=== PATIENT | male | born 2000 | race Caucasian/White ===

== ENCOUNTER 2024-02-16 01:09 | Emergency (ER) | payer MEDICAID, SELFPAY ==
--- NOTE | ~2024-02-16 | XR_ITS ---
EXAMINATION: XR CHEST CLINICAL INFORMATION: cramping spasms, CHEST PAIN PER PT COMPARISON: None available. TECHNIQUE: Frontal view of the chest was obtained. FINDINGS: No significant abnormality is noted involving the heart, lungs, mediastinum, bony thorax or soft tissues. XR/XR chest 1V IMPRESSION: Unremarkable examination. Electronically signed by: Pasha Falk MD 02/16/2024 05:27 AM [facility]
[2024-02-16 01:14] VITALS: BP 132/68; PULSE 99; RESP 16; TEMP 37.1; O2SAT 97; BMI 19.5
[2024-02-16 05:20] VITALS: BP 128/72; PULSE 81; RESP 16; TEMP 36.6; O2SAT 98
--- NOTE | 2024-02-16 05:24 | ECG_ITS ---
Test Reason : LEFT SIDE CHEST PAIN Blood Pressure : / mmHG Vent. Rate : 073 BPM Atrial Rate : 073 BPM P-R Int : 152 ms QRS Dur : 092 ms QT Int : 380 ms P-R-T Axes : 066 076 058 degrees QTc Int : 418 ms Normal sinus rhythm Normal ECG No previous ECGs available Referred By: Abilio Adkins Electronically Signed By:CYNTHIA TEIXEIRA
--- NOTE | 2024-02-16 06:11 | ED.CHESTPAIN ---
HPI - Chest Pain General Chief Complaint: Chest Pain Stated Complaint: L rib pain, sob Time Seen by Provider: 02/16/24 05:45 Source: patient Mode of arrival: ambulatory Limitations: no limitations History of Present Illness ED Provider: ZULAY HPI narrative: 23 yo male with no sig PMH here with c/o L chest wall pain after stretching the other day now he has pain when he moves and rotates the L chest wall. He has no fevers, no recent travel, no URI, he notes it hurts mostly to take a deep breath, rotate, cough. He has no other complaints this has never happened before. He tried motrin before bed and a muscle relaxer from someone doesn't know the name. He has no rash MD complaint: chest pain Onset (ago): day(s) (1) Timing of current episode: episodic Prior episodes: No Onset: other (movement, coughing, breathing) Pain location: left chest Pain radiation: none Severity: moderate Quality: sharp Relieving factors: rest Exacerbating factors: inspiration and movement Context: other Treatment prior to arrival: other Related Data Previous Rx's ?Medication ?Instructions ?Recorded cyclobenzaprine 10 mg tablet 10 mg PO TID PRN muscle spasm #20 02/16/24 tabs lidocaine 5 % topical patch 1 patch topical DAILY #30 ea 02/16/24 Allergies Allergy/AdvReac Type Severity Reaction Status Date / Time No Known Allergies Allergy Verified 02/16/24 01:17 Review of Systems Review of Systems: Constitutional : No Weight loss, No Fever, No Chills ENT/Mouth : No sore throat, No Rhinorrhea Eyes: No Eye Pain, No Swelling Cardiovascular : pos Chest Pain, no SOB, no Dyspnea on Exertion, No Orthopnea, No Edema, No Palpitations Respiratory : No Cough, No Sputum Gastrointestinal : no Nausea, No Vomiting, No Diarrhea, No abdominal Pain, No Hematochezia, No Melena Genitourinary : No Dysuria, No Urinary Frequency Musculoskeletal : No joint pain, No Myalgias, No Joint Swelling Skin : No Skin Lesions, No rash Neuro : No Weakness, No Numbness, No Dizziness, No Headache All other systems reviewed and are negative PMFSH Past Medical History Attestation statement: The following information was validated with the patient. Source: old records reviewed Medical History No pertinent past medical history Social History Social History (Updated 02/16/24 @ 06:18 by Alannah Florez DO) Patient Tobacco Use Status: Never used Tobacco Physical Exam Vital Signs: Vital Signs: Last Vital Signs Temp 97.8 F 02/16/24 05:20 Pulse 81 02/16/24 05:20 Resp 16 02/16/24 05:20 BP 128/72 02/16/24 05:20 Pulse Ox 98 02/16/24 05:20 O2 Del Method Room Air 02/16/24 05:20 BMI result Body Mass Index 19.5 Appearance: Alert. Oriented X3. No acute distress. Eyes: Pupils equal, round and reactive to light. ENT: Pharynx normal. Neck: Normal inspection. Neck supple. CVS: Normal heart rate and rhythm. Pulses normal. Respiratory: No respiratory distress. Breath sounds normal. Chest wall: pain with ROM of left arm and movements, no rash no crepitus Abdomen: Soft and non-tender. Skin: Skin warm and dry. Normal skin color. Normal skin turgor. Extremities: No lower extremity edema. Neuro: Oriented X 3. No motor deficit. No sensory deficit. Medical Decision Making Medical Decision Making [facility] Narrative: 23 yo male otherwise healthy here with c/o L chest wall pain worse with breathing and movements he stretched the other day and since then his L side of chest spasms - he has no fevers, cough, n/v, no recent travel or procedures. He has no risk factors for ACS, no IVDA either, he is PERC negative doubt VTE, has distal bounding pulses and pain gone at rest doubt dissection. Will obtain EKG and CXR for PTX start on MR and toradol. Differential Diagnosis Differential Diagnoses: The differential diagnosis associated with the presentation includes chest wall pain, spasm Admission/Observation Consideration of admission/observation: Escalation of care including admission/observation considered work up negative stable for DC Lab Data [facility] Lab Attestation statement: I reviewed the patient's lab results. Independent Interpretation I performed an independent interpretation of an: EKG and Plain X-Ray (normal ) Interpretation: Rate: 73 Rhythm: NSR [place]: normal Normal P waves. Normal MIRIAN. Normal QRS complex. ST T wave : normal no MALCOLM qTC: 418 prior studies: no acute ischemia The study has been interpreted contemporaneously by me. . Radiology Impression Discussion of test interpretation with radiology: I have reviewed the radiologist's reading. Prescription Management I considered prescription management with: Pain Medication and Other Discharge Plan Discharge Clinical Impression: Acute chest wall pain Patient Disposition: Home, Self-Care Instructions: Chest Wall Pain (ED) Additional Instructions: EKG and chest xray are normal no acute findings please rest and stay hydrated no lifting more than 10lbs for 2 weeks return for any worsening symptoms or concerns such as fainting, increased trouble breathing, fevers, productive cough or any other concerns. Prescriptions: New cyclobenzaprine 10 mg tablet 10 mg PO TID PRN (Reason: muscle spasm) Qty: 20 0RF lidocaine 5 % adhesive patch,medicated 1 patch topical DAILY Qty: 30 0RF Rx Instructions: leave on most painful area for up to 12 hrs Print Language: Turkmen
[2024-02-16] MEDS: Ketorolac Tromethamine 30 MG/ML VIAL IM (06:33)
[2024-02-16] MEDS: Lidocaine 4 % Patch ADH..PATCH 1 PATCH TRANSDERMA (06:34)
[2024-02-16 06:42] VITALS: BP 121/78; PULSE 85; RESP 16; TEMP 36.9; O2SAT 98
== END 2024-02-16 06:44 | disposition home or self-care (01) ==
PROVIDERS: Emergency Provider Emergency Medicine
DX: R07.89 Other chest pain (principal)
CPT/HCPCS: 71045; 93005; 96372; 99284; 99285; J1885

== ENCOUNTER → 2024-02-16 05:24 | Outpatient (BNV) | payer MEDICAID, SELFPAY | PROVIDERS: Emergency Provider Emergency Medicine; Visit Provider Internal Medicine | DX: R07.89 Other chest pain (principal); R06.02 Shortness of breath | CPT/HCPCS: 93010 ==

== ENCOUNTER 2024-04-16 11:34 | Emergency (ER) | payer MEDICAID, SELFPAY ==
[2024-04-16 11:44] VITALS: BP 129/77; PULSE 96; O2SAT 99
[2024-04-16 12:43] VITALS: BP 119/79; PULSE 106; RESP 16; TEMP 36.8; O2SAT 98; BMI 19.5
[2024-04-16 13:45] LABS: Hematocrit 47.7 % (42.0-52.0); Hemoglobin 17.1 g/dl (14.0-18.0); Mean Corpuscular HGB Conc 35.8 g/dl (31.0-36.0); Mean Corpuscular Hemoglobin 29.7 pg (27.0-33.0); Mean Corpuscular Volume 82.8 fL (80.0-98.0); Mean Platelet Volume 10.5 fL (9.4-12.4); Platelet Count 278 X10*3/uL (160-400); Red Blood Count 5.76 X10*6/uL (4.60-5.80); Red Cell Distribution Width 13.8 % (11.0-16.0); White Blood Count 19.1 X10*3/uL (4.8-10.8)
[2024-04-16 13:57] LABS: Alanine Aminotransferase 58 U/L (0-40); Albumin Level 5.7 g/dL (3.5-5.0); Alkaline Phosphatase 79 U/L (39-117); Anion Gap 21 (12-20); Aspartate Amino Transferase 35 U/L (5-37); Bilirubin Total 0.8 mg/dL (0.0-1.0); Blood Urea Nitrogen 28 mg/dL (9-16); Calcium 10.5 mg/dL (8.4-10.2); Carbon Dioxide 21 mmol/L (22-29); Chloride 100 mmol/L (96-108); Creatinine Clr Calc Pharmacy 69.2; Estimated Glomerular Filt Rate > 60; Glucose Random 125 mg/dL (60-115); Sodium 138 mmol/L (135-145); Total Protein 9.8 g/dL (6.5-8.0)
[2024-04-16 14:11] LABS: Band Neutrophils Percent 8 % (3-5); Basophils Abs Manual 0.4 X10*3/uL (0.0-0.2); Basophils Percent Manual 2 % (0-2); Lymphocytes Percent Manual 5 % (20-40); Monocytes Absolute Manual 1.1 X10*3/uL (0.1-1.2); Monocytes Percent Manual 6 % (2-11); Neutrophils Absolute Manual 16.6 X10*3/uL (2.0-8.3); Neutrophils Percent Manual 79 % (45-73)
[2024-04-16 14:12] LABS: Platelet Estimate NORMAL (NORMAL); Platelet Morphology Comment NORMAL; RBC Morphology NORMAL; Toxic Vacuolation PRESENT
[2024-04-16 15:44] LABS: Lactic Acid 1.6 mmol/L (0.5-2.0)
[2024-04-16 16:21] VITALS: BP 126/84; PULSE 107; RESP 16; TEMP 36.5; O2SAT 96
[2024-04-16 16:27] LABS: Influenza A PCR NEGATIVE (Negative); Influenza B PCR NEGATIVE (Negative); Resp Syncy Virus RNA Qual PCR NEGATIVE (Negative); SARS COV2 PCR INHOUSE NEGATIVE (Negative)
--- NOTE | 2024-04-16 16:30 | ED_ITS ---
HPI - Nausea/Vomiting/Diarrhea General Chief complaint: Nausea/Vomiting/Diarrhea Stated complaint: N/V Time Seen by Provider: 04/16/24 16:16 Source: patient, family and old records reviewed Mode of arrival: ambulatory Limitations: no limitations History of Present Illness ED Provider: ZULAY CALHOUN Narrative: 24 yo male with no sig PMH ate some pizza last night but his partner did too and she is fine. Around 130am he started to have significant n/v/d and abdominal cramps. NO recent travel, no fevers, no abx use. No known sick contacts. His chest and abdomen muscle feels sore. He has been able to keep radhames rodrick down this afternoon but he feels sick. MD elicited complaint: nausea, vomiting, diarrhea and abdominal pain Onset (ago): day(s) (130am today) Description of vomiting: food contents Description of diarrhea: watery Associated nausea: Yes Associated abdominal pain: Yes Location of pain: diffuse Radiation: diffuse Pain consistency: intermittent Severity: moderate Quality: cramping Exacerbating factors: eating and vomiting Relieving factors: none Context: possible food poisoning Associated symptoms: loss of appetite, malaise, nausea/vomiting and weakness Related Data Previous Rx's ?Medication ?Instructions ?Recorded cyclobenzaprine 10 mg tablet 10 mg PO TID PRN muscle spasm #20 02/16/24 tabs lidocaine 5 % topical patch 1 patch topical DAILY #30 ea 02/16/24 ondansetron 4 mg disintegrating 4 mg PO Q8H PRN nausea and 04/16/24 tablet vomiting #20 tabs Allergies Allergy/AdvReac Type Severity Reaction Status Date / Time No Known Allergies Allergy Verified 04/16/24 12:45 Review of Systems 2 Review of Systems: Constitutional : No Weight loss, No Fever, No Chills ENT/Mouth : No sore throat, No Rhinorrhea Eyes: No Swelling, No Redness Cardiovascular : No Chest Pain, No SOB, NoEdema Respiratory : No Cough, No Sputum, No Wheezing Gastrointestinal : Positive Nausea, Positive Vomiting, positive Diarrhea, positive abdominal Pain, No Hematochezia, No Melena Genitourinary : No Dysuria, No Urinary Frequency, No Hematuria, No Urgency Musculoskeletal : No joint pain, No Myalgias, No Joint Swelling Skin : No Skin Lesions, No rash Neuro : No Weakness, No Numbness, No Dizziness, No Headache All other systems reviewed and are negative. Gastrointestinal: Gastrointestinal: Reports nausea PMFSH Past Medical History Attestation statement: The following information was validated with the patient. Source: old records reviewed Medical History No pertinent past medical history Social History Social History Unable to assess alcohol history related to: Unknown Patient Tobacco Use Status: Never used Tobacco Smoked in Last 30 Days: No Use of substances other than those prescribed or required for medical reasons: Unknown Substance Use Type: Marijuana Advance Directives: No Advance Directives Information Provided: No Do you have a plan to hurt others: No Plan Physical Exam 2 Vital Signs: Vital Signs: Last Vital Signs Temp 99.3 F 04/16/24 18:16 Pulse 113 H 04/16/24 18:16 Resp 16 04/16/24 18:16 BP 121/62 04/16/24 18:16 Pulse Ox 97 04/16/24 18:16 O2 Del Method Room Air 04/16/24 18:16 BMI result Body Mass Index 19.5 Appearance: Alert. Oriented X3. No acute distress. Eyes: Pupils equal, round and reactive to light. ENT: Pharynx dry MM Neck: Normal inspection. Neck supple. CVS: Normal heart rate and rhythm. Pulses normal. Respiratory: No respiratory distress. Breath sounds normal. Abdomen: Soft and mild diffuse ttp no rebound or guarding Skin: Skin warm and dry. Normal skin color. Normal skin turgor. Extremities: No lower extremity edema. No calf ttp Neuro: Oriented X 3. No motor deficit. No sensory deficit. CN2-12 intact Medications Administered Discontinued Medications Generic Name Dose Route Start Last Admin Trade Name Freq PRN Reason Stop Dose Admin Diphenhydramine HCl 25 mg 04/16/24 16:17 04/16/24 16:32 Diphenhydramine Hcl 50 Mg/Ml Vial IVPUSH 04/16/24 16:18 25 mg ONCE ONE Administration Lactated Ringer's 1,000 mls @ 999 mls/hr 04/16/24 16:17 04/16/24 17:39 Lr IV 04/16/24 17:17 Infused .Q1H1M ONE Infusion Lactated Ringer's 1,000 mls @ 999 mls/hr 04/16/24 16:42 04/16/24 17:39 Lr IV 04/16/24 17:42 Infused .Q1H1M ONE Infusion Metoclopramide HCl 10 mg 04/16/24 16:17 04/16/24 16:32 Metoclopramide Hcl 10 Mg/2 Ml Vial IVPUSH 04/16/24 16:18 10 mg ONCE ONE Administration Medical Decision Making Medical Decision Making [facility] Narrative: 24 yo male with no sig PMH here with n/v/d cramps not feeling well since 130am. He denies risk factors or exposures. At this time seems viral in nature has no localized ttp will obtain basic labs, hydrate and repeat labs I suspect WBC count and bandemia is due to significant vomiting. Differential Diagnosis Differential Diagnoses: The differential diagnosis associated with the presentation includes dehydration, viral syndrome, enteritis Admission/Observation Consideration of admission/observation: Escalation of care including admission/observation considered tolerating PO and repeat labs look good Lab Data [facility] Lab Attestation statement: I reviewed the patient's lab results. 04/16/24 17:33 04/16/24 17:33 Labs: Lab Results 04/16/24 04/16/24 04/16/24 Range/Units 13:25 15:00 17:33 WBC 19.1 H 11.7 H (4.8-10.8) X10*3/uL RBC 5.76 4.46 L D (4.60-5.80) X10*6/uL Hgb 17.1 13.4 L D (14.0-18.0) g/dl Hct 47.7 37.4 L D (42.0-52.0) % MCV 82.8 83.9 (80.0-98.0) fL MCH 29.7 30.0 (27.0-33.0) pg MCHC 35.8 35.8 (31.0-36.0) g/dl RDW 13.8 14.1 (11.0-16.0) % Plt Count 278 188 D (160-400) X10*3/uL MPV 10.5 10.0 (9.4-12.4) fL Immature Gran % (Auto) Cancelled 0.4 Neut % (Auto) Cancelled 88.7 H Lymph % (Auto) Cancelled 2.8 L [place] % (Auto) Cancelled 7.2 Eos % (Auto) Cancelled 0.7 Baso % (Auto) Cancelled 0.2 Lymph # (Auto) Cancelled 0.3 L [place] # (Auto) Cancelled 0.9 Eos # (Auto) Cancelled 0.1 Baso # (Auto) Cancelled 0.0 Abs Immat Gran (auto) Cancelled 0.05 H Absolute Neuts (auto) Cancelled 10.4 H Absolute Nucleated RBC 0.000 0.000 (0.0-0.012) X10*3/uL Nucleated RBC % (auto) 0.0 0.0 (0.0-0.2) /100WBC Neutrophils % (Manual) 79 H (45-73) % Band Neutrophils % 8 H (3-5) % Lymphocytes % (Manual) 5 L (20-40) % Monocytes % (Manual) 6 (2-11) % Basophils % (Manual) 2 (0-2) % Abs Neuts (Manual) 16.6 H (2.0-8.3) X10*3/uL Lymphocytes # (Manual) 1.0 L (1.2-4.9) X10*3/uL Monocytes # (Manual) 1.1 (0.1-1.2) X10*3/uL Basophils # (Manual) 0.4 H (0.0-0.2) X10*3/uL Toxic Vacuolation PRESENT Platelet Estimate NORMAL (NORMAL) Plt Morphology Comment NORMAL RBC Morphology NORMAL Sodium 138 137 (135-145) mmol/L Potassium 4.0 4.4 (3.3-5.1) mmol/L Chloride 100 102 (96-108) mmol/L Carbon Dioxide 21 L 25 (22-29) mmol/L Anion Gap 21 H 14 (12-20) BUN 28 H 24 H (9-16) mg/dL Creatinine 1.15 0.91 (0.5-1.4) mg/dL Estim Creat Clear Calc 69.2 87.5 Estimated GFR > 60 > 60 Random Glucose 125 H 111 (60-115) mg/dL Lactic Acid 1.6 (0.5-2.0) mmol/L Calcium 10.5 H 8.8 D (8.4-10.2) mg/dL Total Bilirubin 0.8 (0.0-1.0) mg/dL AST 35 (5-37) U/L ALT 58 H (0-40) U/L Alkaline Phosphatase 79 (39-117) U/L Total Protein 9.8 H (6.5-8.0) g/dL Albumin 5.7 H (3.5-5.0) g/dL Influenza Type A (PCR) NEGATIVE (Negative) Influenza Type B (PCR) NEGATIVE (Negative) RSV RNA Qual (PCR) NEGATIVE (Negative) SARS-CoV-2 RNA (RT-PCR) NEGATIVE (Negative) Independent Historian Clinical information obtained from an independent historian. History obtained from or confirmed by: Spouse External Record Review External record reviewed: Outpatient record Prescription Management I considered prescription management with: Other Critical Care Time Critical Care Time Critical Care Time: Yes Total Critical Care Time: 45 Attestation: 2L of IVF for resuscitation and repeat labs, review of records I attest to this time spent taking care of the patient Discharge Plan Discharge Clinical Impression: Nausea vomiting and diarrhea Patient Disposition: Home, Self-Care Instructions: Acute Nausea and Vomiting (ED), Acute Diarrhea (ED) Additional Instructions: stay hydrated return for any worsening symptoms eat a bland diet and stay hydrated rice apple sauce bananas toast return for any worsening symptoms or concers Prescriptions: New ondansetron 4 mg tablet,disintegrating 4 mg PO Q8H PRN (Reason: nausea and vomiting) Qty: 20 0RF No Action cyclobenzaprine 10 mg tablet 10 mg PO TID PRN (Reason: muscle spasm) Qty: 20 0RF lidocaine 5 % adhesive patch,medicated 1 patch topical DAILY Qty: 30 0RF Rx Instructions: leave on most painful area for up to 12 hrs Stand Alone Forms: Work/School Release Interventions: ED Discharge Assessment Last Done: 04/16/24 18:16 Discharge Date/Time: 04/16/24 18:17 Print Language: Malay
[2024-04-16] MEDS: Lactated Ringers 1,000 ML 999 ML IV ×2 (16:32→17:03)
[2024-04-16] MEDS: diphenhydrAMINE HCL 50 MG/ML VIAL 25 MG IVPUSH (16:32)
[2024-04-16] MEDS: Metoclopramide HCl 10 MG/2 ML VIAL IVPUSH (16:32)
[2024-04-16 17:36] LABS: MANUAL DIFF FLAG NO
[2024-04-16 17:37] LABS: Basophils Percent Auto 0.2 % (0-2); Eosinophils Absolute Auto 0.1 X10*3/uL (0.0-0.4); Eosinophils Percent Auto 0.7 % (0-4); Hematocrit 37.4 % (42.0-52.0); Hemoglobin 13.4 g/dl (14.0-18.0); Imm Gran Abs Auto 0.05 X10*3/uL (0.00-0.03); Imm Gran Pct Auto 0.4 % (0.0-0.4); Lymphocytes Absolute Auto 0.3 X10*3/uL (1.2-4.9); Lymphocytes Percent Auto 2.8 % (20-40); Mean Corpuscular HGB Conc 35.8 g/dl (31.0-36.0); Mean Corpuscular Volume 83.9 fL (80.0-98.0); Monocytes Absolute Auto 0.9 X10*3/uL (0.1-1.2); Monocytes Percent Auto 7.2 % (2-11); Neutrophils Absolute Auto 10.4 x10*3/uL (2.0-8.3); Neutrophils Percent Auto 88.7 % (45-73); Platelet Count 188 X10*3/uL (160-400); Red Blood Count 4.46 X10*6/uL (4.60-5.80); Red Cell Distribution Width 14.1 % (11.0-16.0); White Blood Count 11.7 X10*3/uL (4.8-10.8)
--- NOTE | 2024-04-16 17:39 | PC.NURSE ---
IV fluids completed before lab draw
[2024-04-16 17:54] LABS: Anion Gap 14 (12-20); Blood Urea Nitrogen 24 mg/dL (9-16); Calcium 8.8 mg/dL (8.4-10.2); Carbon Dioxide 25 mmol/L (22-29); Chloride 102 mmol/L (96-108); Creatinine Clr Calc Pharmacy 87.5; Estimated Glomerular Filt Rate > 60; Glucose Random 111 mg/dL (60-115); Potassium 4.4 mmol/L (3.3-5.1); Sodium 137 mmol/L (135-145)
[2024-04-16 18:06] VITALS: BP 121/62; PULSE 113; RESP 16; TEMP 37.4; O2SAT 97
[2024-04-16 18:16] VITALS: BP 121/62; PULSE 113; RESP 16; TEMP 37.4; O2SAT 97
== END 2024-04-16 18:17 | disposition home or self-care (01) ==
PROVIDERS: Physician Assistant; Emergency Provider Emergency Medicine
DX: R11.2 Nausea with vomiting, unspecified (principal); R19.7 Diarrhea, unspecified; Z03.818 Encounter for observation for suspected exposure to other biological agents ruled out
CPT/HCPCS: 0241U; 36415; 80048; 80053; 83605; 85007; 85025; 85027; 87040; 96361; 96374; 96375; 99284; 99285; J1200; J2765; J7120